=== PATIENT | male | born 1980 | race American Indian/Alaskan Native ===

== ENCOUNTER 2018-01-25 00:39 | Emergency (ER) | payer OTHER ==
[2018-01-25 01:20] VITALS: BP 139/93; PULSE 76; RESP 18; TEMP 98.2; O2SAT 99
--- NOTE | 2018-01-25 02:15 | ED PDOC ---
Arrival/HPI <Rj Carreon - Last Filed: 01/25/18 02:54> - General Historian: Patient - History of Present Illness Time/Duration: Other (2 days) Symptom Onset: Gradual Quality: Throbbing Severity Level: 6 <Yennifer James - Last Filed: 01/25/18 03:38> - General Chief Complaint: Abnormal Skin Integrity Time Seen by Provider: 01/25/18 02:11 - History of Present Illness Narrative History of Present Illness (Text): 01/25/18 03:24 37yr old male presents today with swelling and pain to the cuticle of the right thumb. pt states for the past 2 days the patient noticed increased pain and swelling to the proximal cuticle. pt denies fever/chills. denies trauma or injury. no medications taken for pain at home. pt states this has happened to him in the past. no other complaints. (Yennifer James) Past Medical History - Provider Review Nursing Documentation Reviewed: Yes - Travel History Have you recently traveled outside [place] w/in the past 3 mons?: No - Psychiatric Hx Substance Use: No <Yennifer James - Last Filed: 01/25/18 03:38> Family/Social History - Physician Review Nursing Documentation Reviewed: Yes Family/Social History: Unknown Family HX Smoking Status: Never Smoked Hx Alcohol Use: No Hx Substance Use: No <Yennifer James - Last Filed: 01/25/18 03:38> Allergies/Home Meds <LauriRj - Last Filed: 01/25/18 02:54> <Yennifer James - Last Filed: 01/25/18 03:38> Allergies/Adverse Reactions: Allergies No Known Allergies Allergy (Verified 01/25/18 01:15) Review of Systems - Review of Systems Constitutional: absent: Fatigue, Fevers Respiratory: absent: SOB, Cough Cardiovascular: absent: Chest Pain, Palpitations Gastrointestinal: absent: Abdominal Pain, Nausea, Vomiting Musculoskeletal: Arthralgias Skin: Rash (paronychia) Neurological: absent: Headache, Dizziness <Yennifer James - Last Filed: 01/25/18 03:38> Physical Exam Vital Signs Reviewed: Yes Temperature: Afebrile Blood Pressure: Hypertensive Pulse: Regular Respiratory Rate: Normal Appearance: Positive for: Well-Appearing, Non-Toxic, Comfortable Pain Distress: None Mental Status: Positive for: Alert and Oriented X 3 - Systems Exam Head: Present: Atraumatic Neck: Present: Normal Range of Motion Respiratory/Chest: Present: Clear to Auscultation Cardiovascular: Present: Regular Rate and Rhythm Upper Extremity: Present: Normal ROM, NORMAL PULSES, Tenderness (right thumb; there is edema and small area of erythema noted to the proximal cuticle with tenderness; + fluctuance. full rom of thumb; sensation and distal pulses intact. ), Swelling, Erythema, Neurovascularly Intact, Capillary Refill < 2s. No: Deformity Neurological: Present: GCS=15, Speech Normal Skin: Present: Warm, Dry, Normal Color Psychiatric: Present: Alert, Oriented x 3 <Yennifer James - Last Filed: 01/25/18 03:38> Vital Signs Temp Pulse Resp BP Pulse Ox 01/25/18 01:16 98.2 F 76 18 139/93 H 99 Medical Decision Making <Rj Carreon - Last Filed: 01/25/18 02:54> <Yennifer James - Last Filed: 01/25/18 03:38> ED Course and Treatment: 01/25/18 02:14 37yr old male with paronychia to right thumb x 2 days. bactrim given po motrin given Po i&d of paronychia performed; procedure note; right thumb; area cleaned with chlorhexidine; using 11 blade a small incision was made just under the cuticle; + moderate amount of purulent discharge released; + 1/4 in sterile packing placed; dressing applied; pt tolerated procedure well; no complications. Patient was advised to keep the wound clean and dry and apply bacitracin twice daily. Patient was advised to return in 2 days for packing removal and reevaluation. Patient was advised to take antibiotics as prescribed. Patient verbalizes understanding of discharge instructions and need for immediate followup. all aspects of this case were discussed the attending of record. impression; paronychia Motrin every 6 hours as needed for pain Bactrim 1 tablet twice daily 7 days Keep wound clean and dry Applied bacitracin twice daily Return in 2 days for packing removal and wound check Follow up with a primary care physician within the next 2 days Return if symptoms worsen or persist or if new symptoms develop: High fevers, increasing pain, increasing redness, increasing swelling or if any other concerning symptoms develop (Yennifer James) - Medication Orders Current Medication Orders: Discontinued Medications Ibuprofen (Motrin Tab) 600 mg PO STAT STA Stop: 01/25/18 02:12 Last Admin: 01/25/18 02:47 Dose: 600 mg MAR Pain/Vitals Document 01/25/18 02:47 AD (Rec: 01/25/18 02:47 AD [id number]) Pain Reassessment Is This A Pain ReAssessment? No Presence of Pain Presence of Pain Yes Pain Scale Used Pain Scale Used Numeric Location Intensity 3 Pain Behavior Facial Grimacing Trimethoprim/Sulfamethoxazole (Bactrim Ds Tab) 1 tab PO STAT STA PRN Reason: Protocol Stop: 01/25/18 02:12 Last Admin: 01/25/18 02:48 Dose: 1 tab - PA / [employer] AND [employer] WORKER / Resident Statement NIKKI has reviewed & agrees with the documentation as recorded. NIKKI has examined the patient and agrees with the treatment plan. <Rj Carreon - Last Filed: 01/25/18 02:54> Disposition/Present on Arrival <Rj Carreon - Last Filed: 01/25/18 02:54> - Present on Arrival Any Indicators Present on Arrival: No History of DVT/PE: No History of Uncontrolled Diabetes: No Urinary Catheter: No History of Decub. Ulcer: No History Surgical Site Infection Following: None - Disposition Have Diagnosis and Disposition been Completed?: Yes Disposition Time: 02:13 Patient Plan: Discharge <Yennifer James - Last Filed: 01/25/18 03:38> - Disposition Diagnosis: Paronychia Disposition: HOME/ ROUTINE Condition: GOOD Discharge Instructions (ExitCare): Paronychia (DC) Additional Instructions: Motrin every 6 hours as needed for pain Bactrim 1 tablet twice daily 7 days Keep wound clean and dry Applied bacitracin twice daily Return in 2 days for packing removal and wound check Follow up with a primary care physician within the next 2 days Return if symptoms worsen or persist or if new symptoms develop: High fevers, increasing pain, increasing redness, increasing swelling or if any other concerning symptoms develop Prescriptions: Ibuprofen [Motrin] 600 mg PO Q6H PRN #20 tab PRN Reason: pain/fever reduction Sulfamethoxazole/Trimethoprim [Bactrim DS 800 mg-160 mg] 1 tab PO BID #14 tab Referrals: Delano Hayes MD [Staff Provider] - Follow up with primary Tomas Cruz MD [Staff Provider] - [place] up [place] [facility] [place] - [place] [facility] [place] - Follow up with primary Forms: [employer] (Micronesian), WORK NOTE
[2018-01-25] MEDS: Tmp-Smz 800 mg-160 mg DS Tab PO STA (02:48)
== END 2018-01-25 03:00 | disposition home or self-care (01) ==
LOC: ED 00:39
DX: L03.011 Cellulitis of right finger (principal)